=== PATIENT | male | born 1945 | race Caucasian/White ===

== ENCOUNTER → 2017-10-18 11:17 | Outpatient (CLI) | payer MEDICARE, SELFPAY | PROVIDERS: Family Provider Family Medicine; PCP Family Medicine; Visit Provider Radiology Radiation Oncology | DX: C61 Malignant neoplasm of prostate (principal); C79.51 Secondary malignant neoplasm of bone | CPT/HCPCS: 79101; A9606 ==

== ENCOUNTER → 2017-11-15 11:20 | Outpatient (CLI) | payer MEDICARE, SELFPAY | PROVIDERS: Family Provider Family Medicine; PCP Family Medicine; Visit Provider Radiology Radiation Oncology | DX: C61 Malignant neoplasm of prostate (principal); C79.51 Secondary malignant neoplasm of bone | CPT/HCPCS: 79101; A9606 ==

== ENCOUNTER → 2017-12-15 11:21 | Outpatient (CLI) | payer MEDICARE, SELFPAY | PROVIDERS: Family Provider Family Medicine; PCP Family Medicine; Visit Provider Radiology Radiation Oncology | DX: C61 Malignant neoplasm of prostate (principal); C79.51 Secondary malignant neoplasm of bone | CPT/HCPCS: 79101; A9606 ==

== ENCOUNTER 2017-12-26 17:42 | Emergency (ER) | payer MEDICARE, SELFPAY ==
[2017-12-26 17:43] VITALS: BP 149/84; PULSE 93; RESP 16; TEMP 37.5; O2SAT 95; BMI 25.4
[2017-12-26] MEDS: HYDROmorphone 1 MG/ML Syringe IM (19:25)
[2017-12-26] MEDS: oxyCODONE 5 MG Tablet PO (19:25)
--- NOTE | 2017-12-26 19:27 | ED.VISSUMM ---
- ER Visit Summary Date of Service: 12/26/17 Chief Complaint: Back pain History of Present Illness: The patient is a [address] Castillo and Dr. talyor. He has a history of prostate cancer with metastases to his spine, pelvis, femur. He reports he has chronic back pain that is worse than usual today. Is 9 out of 10 severity. He describes it as a sharp pain just to the right of his spine. Is worsened by movement. Son relieved by his fentanyl patch and oxycodone. He denies any radiation to his legs. No numbness or weakness in his legs. No groin numbness. No problems with his bowels or his bladder. Physical Examination: Vitals: Stable. Afebrile. General: A&O x 3. NAD. Cardiovascular exam: Regular rate and rhythm, no murmur, rub or gallop. Respiratory exam: Clear to auscultation bilaterally. No wheezes or stridor. Abdominal exam: Soft, nontender, nondistended, normal bowel sounds. No peritoneal signs. Back: Mild tenderness palpation just to the right of his lumbar spine. No vertebral tenderness. Extremity: No clubbing, cyanosis, or edema. Emergency Department Course and Treatment: Patient is currently in hospice/palliative care and has been given 3-6 months to live. He has no signs or symptoms of a cauda equina syndrome. He had his fentanyl patch increased from 12.5 mcg to 25 mcg. He was treated with his evening dose of oxycodone and a dose of Dilaudid IM. Treatment Plan: Patient will be discharged prescription for 25 mcg fentanyl patches. Instructed to continue his as needed oxycodone. Follow-up with Dr. Castillo or hospice tomorrow to let them know how his pain is doing. The signs and symptoms of cauda equina syndrome were discussed. She instructed to return for these. Disposition: To home in improved and stable condition. Impression: 1. Metastatic prostate cancer. 2. Hospice patient. This note was generated with [employer] dictation software. It may contain incorrect words, spelling, and punctuation that were not noted in review of the chart prior to signing ED Disposition - Plan for ED Patient: Chief Complaint: Back Instructions: Prostate Cancer: Controlling Cancer Symptoms and Spread Prescriptions: fentaNYL patch [Duragesic patch] 25 mcg TRANSDERM. Q72H #3 patch Referrals: Marshall Castillo DO [STAFF PHYSICIAN] - 1-2 Days if not improving
--- NOTE | 2017-12-26 19:32 | ED.DCSUM_ITS ---
- ER Visit Summary Date of Service: 12/26/17 Chief Complaint: Back pain History of Present Illness: The patient is a [address] Castillo and Dr. taylor. He has a history of prostate cancer with metastases to his spine, pelvis, femur. He reports he has chronic back pain that is worse than usual today. Is 9 out of 10 severity. He describes it as a sharp pain just to the right of his spine. Is worsened by movement. Son relieved by his fentanyl patch and oxycodone. He denies any radiation to his legs. No numbness or weakness in his legs. No groin numbness. No problems with his bowels or his bladder. Physical Examination: Vitals: Stable. Afebrile. General: A&O x 3. NAD. Cardiovascular exam: Regular rate and rhythm, no murmur, rub or gallop. Respiratory exam: Clear to auscultation bilaterally. No wheezes or stridor. Abdominal exam: Soft, nontender, nondistended, normal bowel sounds. No peritoneal signs. Back: Mild tenderness palpation just to the right of his lumbar spine. No vertebral tenderness. Extremity: No clubbing, cyanosis, or edema. Emergency Department Course and Treatment: Patient is currently in hospice/ palliative care and has been given 3-6 months to live. He has no signs or symptoms of a cauda equina syndrome. He had his fentanyl patch increased from 12.5 mcg to 25 mcg. He was treated with his evening dose of oxycodone and a dose of Dilaudid IM. Treatment Plan: Patient will be discharged prescription for 25 mcg fentanyl patches. Instructed to continue his as needed oxycodone. Follow-up with Dr. Castillo or hospice tomorrow to let them know how his pain is doing. The signs and symptoms of cauda equina syndrome were discussed. She instructed to return for these. Disposition: To home in improved and stable condition. Impression: 1. Metastatic prostate cancer. 2. Hospice patient. This note was generated with [employer] dictation software. It may contain incorrect words, spelling, and punctuation that were not noted in review of the chart prior to signing ED Disposition - Plan for ED Patient: Chief Complaint: Back Instructions: Prostate Cancer: Controlling Cancer Symptoms and Spread Prescriptions: fentaNYL patch [Duragesic patch] 25 mcg TRANSDERM. Q72H #3 patch Referrals: Marshall Castillo DO [STAFF PHYSICIAN] - 1-2 Days if not improving
[2017-12-26] MEDS: fentaNYL 25 MCG Patch TRANSDERM. (19:36)
[2017-12-26 19:41] VITALS: BP 138/85; PULSE 90; RESP 14; O2SAT 98
== END 2017-12-26 19:57 | disposition home or self-care (01) ==
LOC: ED 18:57
PROVIDERS: Emergency Provider Emergency Medicine; Family Provider Family Medicine; PCP Family Medicine
DX: Z51.5 Encounter for palliative care (principal); C79.51 Secondary malignant neoplasm of bone; C61 Malignant neoplasm of prostate; G89.29 Other chronic pain; I25.10 Atherosclerotic heart disease of native coronary artery without angina pectoris; I10 Essential (primary) hypertension; J44.9 Chronic obstructive pulmonary disease, unspecified; Z79.891 Long term (current) use of opiate analgesic; Z86.73 Personal history of transient ischemic attack (TIA), and cerebral infarction without residual deficits
CPT/HCPCS: 96372; 99283